=== PATIENT | male | born 1975 | race Caucasian/White ===

== ENCOUNTER 2020-06-06 11:58 | Outpatient (CLI) | payer OTHER, SELFPAY ==
--- NOTE | 2020-06-06 12:43 | XRR_ITS ---
PROCEDURE INFORMATION: Exam: XR Right Hip Exam date and time: 06/06/2020 12:44 PM Age: 44 years old Clinical indication: Hip pain; Right hip; Additional info: Right hip pain TECHNIQUE: Imaging protocol: XR Right hip. Views: 1 view hip with pelvis when performed. COMPARISON: No relevant prior studies available. FINDINGS: Bones/joints: There is asymmetric joint space narrowing seen. A wedge shaped sclerotic density is present in the superior aspect of the right humeral head. Potential for these findings representing avascular necrosis cannot be ruled out. If clinically indicated MRI examination of the right hip is recommended. Soft tissues: Unremarkable. XR/XR hip RT 2-3V wo/w pel* [id number] IMPRESSION: 1. No acute bone abnormality. 2. Right hip osteoarthritis 3. Possible avascular necrosis humeral head
--- NOTE | 2020-06-06 12:43 | XRR_ITS ---
PROCEDURE INFORMATION: Exam: XR Lumbosacral Spine Exam date and time: 06/06/2020 12:44 PM Age: 44 years old Clinical indication: Low back pain TECHNIQUE: Imaging protocol: XR of the lumbosacral spine. Views: 2 or 3 views. COMPARISON: No relevant prior studies available. FINDINGS: Bones/joints: Normal. No acute fracture. Normal alignment. Soft tissues: Unremarkable. XR/XR lumbar spine 2-3V* [id number] IMPRESSION: No acute findings.
== END 2020-06-06 11:59 | disposition home or self-care (01) ==
PROVIDERS: PCP Family Medicine; Visit Provider Family Medicine
DX: M54.5 Low back pain (principal); M16.11 Unilateral primary osteoarthritis, right hip
CPT/HCPCS: 72100; 73502

== ENCOUNTER 2020-10-09 14:25 | Outpatient (CLI) | payer OTHER, SELFPAY ==
--- NOTE | 2020-10-09 14:34 | MR_ITS ---
WS: [id number] MRI RIGHT HIP NONCONTRAST TECHNIQUE: Axial T1, axial T2 fat sat, coronal T1, coronal STIR, sagittal T2 fat sat, sagittal T1, an d sagittal T2 fat sat, of both hips. CLINICAL INFORMATION: RIGHT HIP PAIN COMPARISON: Radiograph June 06, 2020 FINDINGS: Advanced osteoarthritis right hip with loss of the joint space. Subchondral cystic change with T2 hyp erintensity and edema involving the femoral head. Associated serpiginous susceptibility artifact cons istent with avascular necrosis involving the articular surface of the femoral head. Associated mild s ubchondral depression. Small right joint effusion. No acute fractures. Small amount of edema in the a nterolateral acetabulum. Mild degenerative arthritis left hip with joint space narrowing. Normal bone marrow signal in the lef t femoral head and femoral neck. Normal sacrum and sacroiliac joints. Normal visualized soft tissues. Benign-appearing small sclerotic lesion left ilium. Normal visualized pubic rami. MR/MR hip RT wo con* [id number] IMPRESSION: 1. 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 Associated edema in the femoral head. 2. Advanced joint space narrowing right hip with small joint effusion.. 3. Mild joint space narrowing left hip. Left hip is otherwise unremarkable.
== END 2020-10-09 14:26 | disposition home or self-care (01) ==
PROVIDERS: PCP Family Medicine; Visit Provider Registered Nurse
DX: M25.551 Pain in right hip (principal); R93.89 Abnormal findings on diagnostic imaging of other specified body structures; M16.11 Unilateral primary osteoarthritis, right hip; I96 Gangrene, not elsewhere classified; M25.451 Effusion, right hip
CPT/HCPCS: 73721

== ENCOUNTER 2022-06-06 20:00 | Outpatient (CLI) | payer OTHER, SELFPAY | END 2022-06-06 20:01 | disposition home or self-care (01) | LOC: SLEEP 06-07 14:18 | PROVIDERS: PCP Family Medicine; Visit Provider Family Medicine | DX: G47.10 Hypersomnia, unspecified (principal) | CPT/HCPCS: G0399 ==